=== PATIENT | female | born 1975 | race African-American/Black ===

== ENCOUNTER 2017-03-08 07:53 | Emergency (ER) | payer OTHER ==
[~2017-03-08] VITALS: Ht 167.6 cm; Wt 77.1 kg
[~2017-03-08 07:53] MED LIST: COLACE100 MG PO; INDOMETHACIN 2525 MG PO; NOHOMEMEDICATIONS; NORCO 5-325 TA1 EACH PO; OXYCODONE-APAP1 EAC6 PO; PEPCID AC20 M1 PO; PERCOCET 5-3251 EACH PO; ROBAXIN 750 MG750 M1 PO; VITAMIN D 5050000 I1 PO; [UNRECOGNIZED DRUG - OTHER] PO
[2017-03-08 08:45] LABS: ABSOLUTE NEUTROPHILS 3.8 thou/uL (1.4-8.2); BASOPHILS 0.3 % (0.0-2.0); EOSINOPHILS 9.9 % (0.0-3.0); HEMATOCRIT 42.1 % (37.0-47.0); HEMOGLOBIN 13.7 gm/dL (12.0-15.0); LYMPHOCYTES 22.5 % (24.0-44.0); MCHC 32.6 g/dL (28.0-37.0); MCV 82.9 fL (80.0-100.0); MONOCYTES 6.4 % (1.0-8.0); PLATELET COUNT 211 thou/uL (150-400); POLYS 60.9 % (36.0-66.0); RBC 5.08 mil/uL (4.20-5.00); RDW 15.7 % (10.5-14.5); WBC 6.2 thou/uL (4.0-11.0)
[2017-03-08 08:48] LABS: MANUAL DIFF NO
[2017-03-08 08:49] LABS: ANION GAP 9 mmol/L (7-16); BUN 8 mg/dL (7-18); CALCIUM 8.3 mg/dL (8.5-10.1); CHLORIDE 103 mmol/L (98-107); CO2 24 mmol/L (21-32); CREATININE 0.9 mg/dL (0.6-1.0); GLUCOSE 99 mg/dL (74-106); SODIUM 136 mmol/L (136-145)
[2017-03-08 08:54] LABS: ALBUMIN 3.6 g/dL (3.4-5.0); ALKALINE PHOSPHATASE 91 U/L (46-116); DIRECT BILIRUBIN < 0.1 mg/dL (<0.1-0.3); SGOT 38 U/L (15-37); SGPT 65 U/L (30-65); TOTAL BILIRUBIN 0.4 mg/dL (<0.1-1.0); TOTAL PROTEIN 7.1 g/dL (6.4-8.2)
[2017-03-08] MEDS ORDERED: ULTRAM 50MG TAB50 MG PO (11:40)
[2017-03-08] MEDS ORDERED: PRILOSEC 20 MG20 MG PO (11:40)
[2017-03-08] MEDS ORDERED: ZOFRAN ODT4 MG PO (11:44)
[2017-03-08 11:54] VITALS: BP 118/79
== END 2017-03-08 11:55 | disposition home or self-care (01) ==
LOC: ER 07:53
PROVIDERS: Emergency Medicine
DX: R10.12 Left upper quadrant pain (principal); R11.2 Nausea with vomiting, unspecified; Z90.49 Acquired absence of other specified parts of digestive tract; Z88.2 Allergy status to sulfonamides; F17.210 Nicotine dependence, cigarettes, uncomplicated